=== PATIENT | female | born 1975 | race Caucasian/White ===

== ENCOUNTER 2017-05-01 03:50 | Emergency (ER) | payer BC ==
[~2017-05-01] VITALS: Ht 170.2 cm; Wt 93.4 kg
[2017-05-01 04:23] VITALS: Ht 170.2 cm; Wt 93.4 kg
[2017-05-01 08:18] LABS: BASOPHIL % 0.3 % (0-2); PLATELET COUNT 199 x10^3mcL (130-400); RED CELL DISTRIBUTION WIDTH 14.1 % (11.5-14.5)
[2017-05-01 08:34] LABS: CALCIUM 9.5 mg/dL (8.5-10.1); CARBON DIOXIDE 23.4 mmol/L (21-32); CHLORIDE SERUM 103 mmol/L (98-107); CREATININE SERUM 0.8 mg/dL (0.6-1.0); GFR1 > 60 mL/min; GLUCOSE SERUM 151 mg/dL (74-106); POTASSIUM SERUM 3.9 mmol/L (3.5-5.1); SODIUM SERUM 139 mmol/L (136-145)
[2017-05-01 08:39] LABS: UA SPECIFIC GRAVITY >=1.030 (1.005-1.035); microscopic required? YES; urine erythrocyte 1+ (NEGATIVE)
[2017-05-01 08:43] LABS: ALBUMIN 4.1 g/dL (3.4-5.0); ALKALINE PHOSPHATASE 73 U/L (46-116); ALT/SGPT 29 U/L (14-59); AST/SGOT 27 U/L (15-37); BILIRUBIN TOTAL 0.61 mg/dL (0.20-1.00); LIPASE 97 IU/L (73-393); TOTAL PROTEIN, SERUM 8.1 g/dL (6.4-8.2)
[2017-05-01 09:37] VITALS: BP 113/68
== END 2017-05-01 09:38 | disposition home or self-care (01) ==
LOC: ED 03:50
PROVIDERS: Emergency Medicine
DX: K52.9 Noninfective gastroenteritis and colitis, unspecified (principal); Z88.0 Allergy status to penicillin
CPT/HCPCS: J1885; J2270; J2405